=== PATIENT | female | born 1985 | race Caucasian/White ===

== ENCOUNTER 2017-03-02 07:05 | Inpatient (IN) | payer BC, OTHER ==
[2017-03-02] MEDS ORDERED: Ondansetron 4 MG/2 ML SDV IVPUSH PRN ×2 (07:13→10:06)
[2017-03-02] MEDS ORDERED: Nalbuphine 20 MG/1 ML Amp IVPUSH PRN (07:13)
[2017-03-02] MEDS ORDERED: Sodium Chloride 0.9% 10 ML Syringe FLUSH PRN (07:13)
[2017-03-02] MEDS ORDERED: Oxytocin/Lactated Ringers 10 UNIT/1,000 ML BAG IV SCH ×2 (07:15)
[2017-03-02] MEDS: Lactated Ringers 1,000 ML IV SCH ×4 (07:57→15:51)
--- NOTE | 2017-03-02 09:40 | PCM.LDHP ---
L&D History of Present Illness - General Date of Service: 03/02/17 Admit Problem/Dx: Patient Status Order with Admit Dx/Problem 03/02/17 07:14 Patient Status [ADT] Routine Admission Diagnosis/Problem Admission Diagnosis/Problem Normal Source of Information: Patient History Limitations: Reports: No Limitations - History of Present Illness Introduction:: Patient is a 31 y/o at 39 2/7 wks who presents for IOL due to history of prior affected by demise around 23-24 wks. No etiology found for that demise. Patient was noted to be a carrier for Factor V Leiden and elected to have prophylactic Lovenox this . She has otherwise completed serial growth US's and NST's which have been appropriate this . She is doing well today. No major concerns or complaints. She is getting good FM. - Related Data Allergies/Adverse Reactions: Allergies Allergy/AdvReac Type Severity Reaction Status Date / Time amoxicillin Allergy Rash Verified 04/01/15 08:38 Home Medications: Home Meds Loratadine [Claritin] 10 mg PO DAILY 03/31/15 [History] PNV95/Ferrous Fumarate/FA [ Tablet] 1 tab PO DAILY 05/02/16 [History] Past Medical History HEENT History: Reports: Impaired Vision Other HEENT History: wears glasses LITERACY COORDINATOR History: Reports: : 2 Para: 0 LMP (Approximate): Hematologic History: Reports: Other (See Below) (Factor V Leiden mutation - heterozygote) - Past Surgical History HEENT Surgical History: Reports: Myringotomy w Tube(s), Oral Surgery Female Surgical History: Reports: Salpingo-Oophorectomy Social & Family History - Family History Family Medical History: Noncontributory - Tobacco Use Smoking Status *Q: Never Smoker Second Hand Smoke Exposure: No - Caffeine Use Caffeine Use: Reports: Soda - Alcohol Use Alcohol Use History: No Days Per Week of Alcohol Use: 0 - Recreational Drug Use Recreational Drug Use: No Drug Use in Last 12 Months: No - Living Situation & Occupation Living situation: Reports: , with Spouse Occupation: Employed H&P Review of Systems - Review of Systems: Review Of Systems: See Below General: Reports: No Symptoms Pulmonary: Reports: No Symptoms Cardiovascular: Reports: No Symptoms Gastrointestinal: Reports: No Symptoms Genitourinary: Reports: No Symptoms Musculoskeletal: Reports: No Symptoms Psychiatric: Reports: No Symptoms L&D Exam - Exam Exam: See Below - Vital Signs Vital Signs: Last Vital Signs Temp 36.9 C 03/02/17 07:56 Pulse 103 H 03/02/17 07:56 Resp 20 03/02/17 07:56 BP 122/81 03/02/17 07:56 Pulse Ox 98 03/02/17 07:56 Weight: 88.451 kg - OB Specific Contraction Intensity: Irritability Movement: Active Heart Tones: Present Heart Tones per Min: 135 Heart Rate (FHR) Variability: Moderate (6-25 bmp) Presentation: Vertex - Acharya Score Acharya Score Cervix Position: Posterior Acharya Score Consistency: Soft Acharya Score Effacement: 51-70% Acharya Score Dilation: 3-4 cm Acharya Score 's Station: -1 ,0 Acharya Score Total: 8 - Exam General: Alert, Oriented, Cooperative Lungs: Clear to Auscultation, Normal Respiratory Effort Cardiovascular: Regular Rate, Regular Rhythm GI/Abdominal Exam: Soft, Non-Tender Genitourinary: Normal external exam Extremities: Normal Inspection Skin: Warm, Dry, Intact - Patient Data Lab Results Last 24 hrs: Laboratory Results - last 24 hr 03/02/17 03/02/17 Range/Units 07:40 07:40 WBC 9.43 (3.98-10.04) K/mm3 RBC 3.43 L (3.98-5.22) M/mm3 Hgb 9.8 L (11.2-15.7) gm/L Hct 30.4 L (34.1-44.9) % MCV 88.6 (79.4-94.8) fl MCH 28.6 (25.6-32.2) pg MCHC 32.2 (32.2-35.5) g/dl RDW Std Deviation 49.9 H (36.4-46.3) fL Plt Count 152 L (182-369) K/mm3 MPV 11.8 (9.4-12.3) fl Blood Type A POSITIVE Gel Antibody Screen Negative Result Diagrams: 03/02/17 07:40 - Problem List (1) Prior with demise and current in third trimester SNOMED Code(s): 78010900, 74011960 ICD Code: O09.293 - SUPRVSN OF PREG W POOR REPRODCTV OR OBSTET HX, THIRD TRI Status: Acute Current Visit: Yes (2) Heterozygous factor V Leiden affecting in third trimester, antepartum SNOMED Code(s): 226772299 ICD Code: O99.113 - OTH DIS OF BLD/BLD-FORM ORG/IMMUN MECHNSM COMP PREG, 3RD TRI; D68.51 - ACTIVATED PROTEIN C RESISTANCE Status: Acute Current Visit: Yes (3) GBS (group B Streptococcus carrier), +RV culture, currently SNOMED Code(s): 50076517, 223320904 ICD Code: O99.820 - STREPTOCOCCUS B CARRIER STATE COMPLICATING Status: Acute Current Visit: Yes (4) Rubella non-immune status, antepartum SNOMED Code(s): 293688702 ICD Code: O99.89 - OTH DISEASES AND CONDITIONS COMPL PREG/CHLDBRTH; Z28.3 - UNDERIMMUNIZATION STATUS Status: Acute Current Visit: Yes Problem List Initiated/Reviewed/Updated: Yes Orders Last 24hrs: Active Orders 24 hr Category Date Time Status Patient Status [ADT] Routine ADT 03/02/17 07:14 Active Communication Order [RC] ASDIRECTED Care 03/02/17 07:13 Active Communication Order [RC] ASDIRECTED Care 03/02/17 07:13 Active Communication Order [RC] ASDIRECTED Care 03/02/17 07:13 Active Monitoring [RC] INTERMITTENT Care 03/02/17 07:13 Active Notify Provider [RC] ASDIRECTED Care 03/02/17 07:13 Active Notify Provider [RC] PRN Care 03/02/17 07:13 Active Peripheral IV Care [RC] . DIRECTED Care 03/02/17 07:15 Active Up ad Tammie [RC] ASDIRECTED Care 03/02/17 07:13 Active Vaginal Exam [RC] ASDIRECTED Care 03/02/17 07:13 Active Regular Diet [DIET] Diet 03/02/17 Breakfast Active Lactated Ringers [Ringers, Lactated] 1,000 ml Med 03/02/17 07:15 Active IV ASDIRECTED Nalbuphine [Nubain] Med 03/02/17 07:13 Active 10 mg IVPUSH Q2H PRN Ondansetron [Zofran] Med 03/02/17 07:13 Active 4 mg IVPUSH Q4H PRN Oxytocin/Lactated Ringers [Pitocin in LR 10 Units/1,000 Med 03/02/17 07:15 Active ML] 10 unit in 1,000 ml IV .CONTINUOUS Oxytocin/Lactated Ringers [Pitocin in LR 10 Units/1,000 Med 03/02/17 07:15 Active ML] 10 unit in 1,000 ml IV TITRATE Sodium Chloride 0.9% [Saline Flush] Med 03/02/17 07:13 Active 10 ml FLUSH ASDIRECTED PRN Vancomycin [Vancocin] 1 gm Med 03/02/17 07:30 Active Sodium Chloride 0.9% [Normal Saline] 250 ml IV Q12H Electronic Heart Tones Internal [WOMSER] Per Unit Oth 03/02/17 07:13 Ordered Routine Peripheral IV Insertion Adult [OM.PC] Routine Oth 03/02/17 07:13 Ordered Resuscitation Status Routine Resus Stat 03/02/17 07:13 Ordered Medication Orders Lactated Ringer's (Ringers, Lactated) 1,000 mls @ 40 mls/hr IV ASDIRECTED RAMONE Last Admin: 03/02/17 07:57 Dose: 40 mls/hr Oxytocin/Lactated Ringer's (Pitocin In Lr 10 Units/1,000 Ml) 10 unit in 1,000 mls @ 500 mls/hr IV .CONTINUOUS RAMONE Oxytocin/Lactated Ringer's (Pitocin In Lr 10 Units/1,000 Ml) 10 unit in 1,000 mls @ 12 mls/hr IV TITRATE RAMONE; 2 MUNITS/MIN PRN Reason: Protocol Last Titration: 03/02/17 09:32 Dose: 4 munits/min, 24 mls/hr Admin: 03/02/17 09:05 Dose: 2 munits/min, 12 mls/hr Vancomycin HCl 1 gm/ Sodium (Chloride) 250 mls @ 250 mls/hr IV Q12H RAMONE Last Admin: 03/02/17 07:57 Dose: 250 mls/hr Nalbuphine HCl (Nubain) 10 mg IVPUSH Q2H PRN PRN Reason: Pain (moderate 4-6) Ondansetron HCl (Zofran) 4 mg IVPUSH Q4H PRN PRN Reason: Nausea/Vomiting Sodium Chloride (Saline Flush) 10 ml FLUSH ASDIRECTED PRN PRN Reason: Keep Vein Open Assessment/Plan Comment:: 31 y/o at 39 2/7 wks presents for IOL due to history of 23-24 wk demise in prior * CBC and T&S * Pitocin for induction with AROM when able * Vancomycin for GBS positive status (PCN allergy and GBS resistant to clindamycin) * Has been on prophylactic Lovenox this , last dose yesterday at 0715. Will possibly restart post- depending upon circumstances of delivery * Pain management per patient preference * MMR post delivery Hayde Villegas MD
[2017-03-02] MEDS ORDERED: fentaNYL 100 MCG/2 ML SDV EPIDUR PRN (10:06)
[2017-03-02] MEDS ORDERED: ePHEDrine 50 MG/ML SDV IVPUSH PRN (10:06)
--- NOTE | 2017-03-02 10:12 | PCM.PREANE ---
Preanesthetic Assessment - Anesthesia/Transfusion/Family Hx Anesthesia History: Prior Anesthesia Without Reaction Family History of Anesthesia Reaction: No Transfusion History: No Prior Transfusion(s) Intubation History: Unknown - Review of Systems General: No Symptoms Pulmonary: No Symptoms Cardiovascular: No Symptoms Gastrointestinal: No Symptoms Neurological: No Symptoms - Physical Assessment NPO Status Date: 03/02/17 NPO Status Time: 09:00 Pulse: 103 O2 Sat by Pulse Oximetry: 98 Respiratory Rate: 20 Blood Pressure: 122/81 Temperature: 36.9 C Vital Signs: Last Vital Signs Temp 36.9 C 03/02/17 07:56 Pulse 103 H 03/02/17 07:56 Resp 20 03/02/17 07:56 BP 122/81 03/02/17 07:56 Pulse Ox 98 03/02/17 07:56 Height: 1.68 m Weight: 88.451 kg ASA Class: 2 Mental Status: Alert & Oriented x3 Airway Class: Mallampati = 3 Dentition: Reports: Normal Dentition, Caries Thyro-Mental Finger Breadths: 3 Mouth Opening Finger Breadths: 3 ROM/Head Extension: Full Lungs: Clear to Auscultation, Normal Respiratory Effort Cardiovascular: Regular Rate, Regular Rhythm, No Murmurs - Lab Values: Laboratory Last Values WBC 9.43 K/mm3 (3.98-10.04) 03/02/17 07:40 RBC 3.43 M/mm3 (3.98-5.22) L 03/02/17 07:40 Hgb 9.8 gm/L (11.2-15.7) L 03/02/17 07:40 Hct 30.4 % (34.1-44.9) L 03/02/17 07:40 MCV 88.6 fl (79.4-94.8) 03/02/17 07:40 MCH 28.6 pg (25.6-32.2) 03/02/17 07:40 MCHC 32.2 g/dl (32.2-35.5) 03/02/17 07:40 RDW Std Deviation 49.9 fL (36.4-46.3) H 03/02/17 07:40 Plt Count 152 K/mm3 (182-369) L 03/02/17 07:40 MPV 11.8 fl (9.4-12.3) 03/02/17 07:40 Blood Type A POSITIVE 03/02/17 07:40 Gel Antibody Screen Negative 03/02/17 07:40 Above labs reviewed and noted. - Allergies Allergies/Adverse Reactions: Allergies Allergy/AdvReac Type Severity Reaction Status Date / Time amoxicillin Allergy Rash Verified 04/01/15 08:38 - Anesthesia Plan Pre-Op Medication Ordered: None - Acknowledgements Anesthesia Type Planned: Epidural Pt an Appropriate Candidate for the Planned Anesthesia: Yes Alternatives and Risks of Anesthesia Discussed w Pt/Guardian: Yes Pt/Guardian Understands and Agrees with Anesthesia Plan: Yes PreAnesthesia Questionnaire HEENT History: Reports: Impaired Vision Other HEENT History: wears glasses Cardiovascular History: Reports: Other (See Below) Other Cardiovascular History: factor 5 Genitourinary History: Reports: Other (See Below) 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 OB/BYN History: unilateral salpingo-oophorectomy Hematologic History: Reports: Other (See Below) (Factor V Leiden mutation - heterozygote) - Past Surgical History HEENT Surgical History: Reports: Myringotomy w Tube(s), Oral Surgery Female Surgical History: Reports: Salpingo-Oophorectomy - SUBSTANCE USE Smoking Status *Q: Never Smoker Second Hand Smoke Exposure: No Days Per Week of Alcohol Use: 0 Recreational Drug Use History: No - HOME MEDS Home Medications: Home Meds Loratadine [Claritin] 10 mg PO DAILY 03/31/15 [History] PNV95/Ferrous Fumarate/FA [ Tablet] 1 tab PO DAILY 05/02/16 [History] - CURRENT (IN HOUSE) MEDS Current Meds: Current Medications Lactated Ringer's (Ringers, Lactated) 1,000 mls @ 40 mls/hr IV ASDIRECTED RAMONE Last Admin: 03/02/17 07:57 Dose: 40 mls/hr Oxytocin/Lactated Ringer's (Pitocin In Lr 10 Units/1,000 Ml) 10 unit in 1,000 mls @ 500 mls/hr IV .CONTINUOUS RAMONE Oxytocin/Lactated Ringer's (Pitocin In Lr 10 Units/1,000 Ml) 10 unit in 1,000 mls @ 12 mls/hr IV TITRATE RAMONE; 2 MUNITS/MIN PRN Reason: Protocol Last Titration: 03/02/17 09:32 Dose: 4 munits/min, 24 mls/hr Vancomycin HCl 1 gm/ Sodium (Chloride) 250 mls @ 250 mls/hr IV Q12H RAMONE Last Admin: 03/02/17 07:57 Dose: 250 mls/hr Nalbuphine HCl (Nubain) 10 mg IVPUSH Q2H PRN PRN Reason: Pain (moderate 4-6) Ondansetron HCl (Zofran) 4 mg IVPUSH Q4H PRN PRN Reason: Nausea/Vomiting Sodium Chloride (Saline Flush) 10 ml FLUSH ASDIRECTED PRN PRN Reason: Keep Vein Open
[2017-03-02] MEDS ORDERED: Bupivacaine/fentaNYL/NS 100 ML Bag EPIDUR SCH (10:15)
--- NOTE | 2017-03-02 15:03 | PCM.PNLD ---
Labor Progress Note - VS & Meds Vital Signs: Last Vital Signs Temp 36.9 C 03/02/17 10:13 Pulse 103 H 03/02/17 10:13 Resp 20 03/02/17 10:13 BP 122/81 03/02/17 10:13 Pulse Ox 98 03/02/17 10:13 Active Medications: Current Medications Ephedrine Sulfate (Ephedrine Sulfate) 5 mg IVPUSH ASDIRECTED PRN PRN Reason: Hypotension Fentanyl (Sublimaze) 100 mcg EPIDUR Q3H PRN PRN Reason: Pain Last Admin: 03/02/17 14:19 Dose: 100 mcg Fentanyl/Bupivacaine HCl (Fentanyl/Bupivacaine/Ns 2 Mcg-0.125% 100 Ml) 100 ml EPIDUR ASDIRECTED RAMONE Last Admin: 03/02/17 14:19 Dose: 100 ml Lactated Ringer's (Ringers, Lactated) 1,000 mls @ 40 mls/hr IV ASDIRECTED RAMONE Last Admin: 03/02/17 14:00 Dose: 40 mls/hr Oxytocin/Lactated Ringer's (Pitocin In Lr 10 Units/1,000 Ml) 10 unit in 1,000 mls @ 500 mls/hr IV .CONTINUOUS RAMONE Oxytocin/Lactated Ringer's (Pitocin In Lr 10 Units/1,000 Ml) 10 unit in 1,000 mls @ 12 mls/hr IV TITRATE RAMONE; 2 MUNITS/MIN PRN Reason: Protocol Last Titration: 03/02/17 14:57 Dose: 11 munits/min, 66 mls/hr Vancomycin HCl 1 gm/ Sodium (Chloride) 250 mls @ 250 mls/hr IV Q12H RAMONE Last Admin: 03/02/17 07:57 Dose: 250 mls/hr Nalbuphine HCl (Nubain) 10 mg IVPUSH Q2H PRN PRN Reason: Pain (moderate 4-6) Ondansetron HCl (Zofran) 4 mg IVPUSH Q4H PRN PRN Reason: Nausea/Vomiting Ondansetron HCl (Zofran) 4 mg IVPUSH ONETIME PRN PRN Reason: Nausea/Vomiting Sodium Chloride (Saline Flush) 10 ml FLUSH ASDIRECTED PRN PRN Reason: Keep Vein Open - Uterine Contractions Uterine Monitoring Mode: External [place] Contraction Intensity: Mild Uterine Resting Tone: Soft - Monitoring Monitor Mode: External Ultrasound Heart Rate (FHR) Baseline: 135 Heart Rate (FHR) Variability: Moderate (6-25 bmp) Accelerations: Present, 15x15 Decelerations: None Strip Review: Category I - Vaginal Exam Dilation (cm): 3 Effacement (Percent): 75 Station: -1 Cervical Position: Posterior - Labor Progress (Free Text) Labor Progress: Patient doing well. On pitocin of 14. Contractions just starting to get uncomfortable. AROM performed with release of clear fluid. Continue present management
[2017-03-02] MEDS ORDERED: Lidocaine 1% 50 ML MDV ONE (15:57)
--- NOTE | 2017-03-02 18:40 | PCM.DEL ---
L & D Note - General Info Date of Service: 03/02/17 - Delivery Note Labor: Induced by ARM, Induced by Oxytocin Delivery Outcome: Livebirth Infant Delivery Method: Spontaneous Vaginal Delivery-Single Infant Delivery Mode: Spontaneous Presentation: Left Occiput Anterior (ZIGGY) Nuchal Cord: Present Anesthesia Type: Epidural Amniotic Fluid Description: Clear Episiotomy Type: None Laceration: 2nd Degree, Periurethral Suture type: Vicryl Suture size: 2-0 Placenta: Intact, Spontaneous Cord: 3 Vessels Estimated Blood Loss: 300 Resuscitation Needed: Yes [place]: Bulb Syringe, Stimulated, Warmed, [place] Used Score 1 min: 8 Score 5 min: 9 Delivery Comments (Free Text/Narrative):: Patient found to be complete and began pushing. With maternal pushing effort head delivered from an ZIGGY presentation. Nuchal cord present, but not reduced. With gentle downward traction the shoulders and body delivered. placed on maternal abdomen. Cord clamped and cut. Cord blood obtained. Placenta allowed time to separate and then expelled. Inspection of the perineum showed a 2nd degree laceration which was repaired with a 2-0 vicryl in the typical fashion. - Patient Data Vitals - Most Recent: Last Vital Signs Temp 36.9 C 03/02/17 10:13 Pulse 103 H 03/02/17 10:13 Resp 20 03/02/17 10:13 BP 122/81 03/02/17 10:13 Pulse Ox 98 03/02/17 10:13 Weight - Most Recent: 88.451 kg I&O - Last 24 Hours: Intake & Output 03/02/17 03/02/17 03/02/17 06:59 14:59 22:59 Intake Total 360 Balance 360 Lab Results Last 24 Hours: Laboratory Results - last 24 hr 03/02/17 03/02/17 Range/Units 07:40 07:40 WBC 9.43 (3.98-10.04) K/mm3 RBC 3.43 L (3.98-5.22) M/mm3 Hgb 9.8 L (11.2-15.7) gm/L Hct 30.4 L (34.1-44.9) % MCV 88.6 (79.4-94.8) fl MCH 28.6 (25.6-32.2) pg MCHC 32.2 (32.2-35.5) g/dl RDW Std Deviation 49.9 H (36.4-46.3) fL Plt Count 152 L (182-369) K/mm3 MPV 11.8 (9.4-12.3) fl Blood Type A POSITIVE Gel Antibody Screen Negative Med Orders - Current: Current Medications Ephedrine Sulfate (Ephedrine Sulfate) 5 mg IVPUSH ASDIRECTED PRN PRN Reason: Hypotension Fentanyl (Sublimaze) 100 mcg EPIDUR Q3H PRN PRN Reason: Pain Last Admin: 03/02/17 14:19 Dose: 100 mcg Fentanyl/Bupivacaine HCl (Fentanyl/Bupivacaine/Ns 2 Mcg-0.125% 100 Ml) 100 ml EPIDUR ASDIRECTED RAMONE Last Admin: 03/02/17 14:19 Dose: 100 ml Lactated Ringer's (Ringers, Lactated) 1,000 mls @ 40 mls/hr IV ASDIRECTED RAMONE Last Admin: 03/02/17 15:51 Dose: 40 mls/hr Oxytocin/Lactated Ringer's (Pitocin In Lr 10 Units/1,000 Ml) 10 unit in 1,000 mls @ 500 mls/hr IV .CONTINUOUS RAMONE Oxytocin/Lactated Ringer's (Pitocin In Lr 10 Units/1,000 Ml) 10 unit in 1,000 mls @ 12 mls/hr IV TITRATE RAMONE; 2 MUNITS/MIN PRN Reason: Protocol Last Titration: 03/02/17 15:21 Dose: 12 munits/min, 72 mls/hr Vancomycin HCl 1 gm/ Sodium (Chloride) 250 mls @ 250 mls/hr IV Q12H RAMONE Last Admin: 03/02/17 07:57 Dose: 250 mls/hr Nalbuphine HCl (Nubain) 10 mg IVPUSH Q2H PRN PRN Reason: Pain (moderate 4-6) Ondansetron HCl (Zofran) 4 mg IVPUSH Q4H PRN PRN Reason: Nausea/Vomiting Ondansetron HCl (Zofran) 4 mg IVPUSH ONETIME PRN PRN Reason: Nausea/Vomiting Sodium Chloride (Saline Flush) 10 ml FLUSH ASDIRECTED PRN PRN Reason: Keep Vein Open Discontinued Medications Lidocaine HCl (Xylocaine 1%) Confirm Administered Dose 50 ml .ROUTE .STK-MED ONE Stop: 03/02/17 15:58 - Problem List & Annotations (1) Prior with demise and current in third trimester SNOMED Code(s): 14843307, 98248106 Code(s): O09.293 - SUPRVSN OF PREG W POOR REPRODCTV OR OBSTET HX, THIRD TRI Status: Acute Current Visit: Yes (2) Heterozygous factor V Leiden affecting in third trimester, antepartum SNOMED Code(s): 593108152 Code(s): O99.113 - OTH DIS OF BLD/BLD-FORM ORG/IMMUN MECHNSM COMP PREG, 3RD TRI; D68.51 - ACTIVATED PROTEIN C RESISTANCE Status: Acute Current Visit: Yes (3) GBS (group B Streptococcus carrier), +RV culture, currently SNOMED Code(s): 96573528, 480542633 Code(s): O99.820 - STREPTOCOCCUS B CARRIER STATE COMPLICATING Status: Acute Current Visit: Yes (4) Rubella non-immune status, antepartum SNOMED Code(s): 826518944 Code(s): O99.89 - OTH DISEASES AND CONDITIONS COMPL PREG/CHLDBRTH; Z28.3 - UNDERIMMUNIZATION STATUS Status: Acute Current Visit: Yes (5) Vaginal delivery SNOMED Code(s): 326939737 Code(s): O80 - ENCOUNTER FOR FULL-TERM UNCOMPLICATED DELIVERY Status: Acute Current Visit: No - Problem List Review Problem List Initiated/Reviewed/Updated: Yes - My Orders Last 24 Hours: My Active Orders 03/02/17 07:13 Communication Order [RC] ASDIRECTED Communication Order [RC] ASDIRECTED Communication Order [RC] ASDIRECTED Monitoring [RC] INTERMITTENT Notify Provider [RC] ASDIRECTED Notify Provider [RC] PRN Up ad Tammie [RC] ASDIRECTED Vaginal Exam [RC] ASDIRECTED Nalbuphine [Nubain] 10 mg IVPUSH Q2H PRN Ondansetron [Zofran] 4 mg IVPUSH Q4H PRN Sodium Chloride 0.9% [Saline Flush] 10 ml FLUSH ASDIRECTED PRN Electronic Heart Tones Internal [WOMSER] Per Unit Routine Peripheral IV Insertion Adult [OM.PC] Routine Resuscitation Status Routine 03/02/17 07:14 Patient Status [ADT] Routine 03/02/17 07:15 Peripheral IV Care [RC] . DIRECTED Lactated Ringers [Ringers, Lactated] 1,000 ml IV ASDIRECTED Oxytocin/Lactated Ringers [Pitocin in LR 10 Units/1,000 ML] 10 unit in 1,000 ml IV .CONTINUOUS Oxytocin/Lactated Ringers [Pitocin in LR 10 Units/1,000 ML] 10 unit in 1,000 ml IV TITRATE 03/02/17 07:30 Vancomycin [Vancocin] 1 gm Sodium Chloride 0.9% [Normal Saline] 250 ml IV Q12H 03/02/17 18:36 Patient Status Manage Transfer [TRANSFER] Routine 03/02/17 Breakfast Regular Diet [DIET] - Assessment Assessment:: 31 y/o G2 now P1101 PPD#0 from at 39 2/7 wks - Plan Plan:: * Routine cares * Encourage breast feeding * Likely can hold Lovenox as delivery uncomplicated, but will discuss further tomorrow * Discharge home in 2 days * MMR prior to discharge Hayde Villegas MD
[2017-03-02] MEDS ORDERED: Docusate Sodium 100 MG Cap PO PRN (19:44)
[2017-03-02] MEDS ORDERED: Witch Hazel Medicated Pads 100/Jar TOP PRN (19:44)
[2017-03-02] MEDS ORDERED: Benzocaine/Menthol 20%-0.5% Spray 56 GM Canister TOP PRN (19:44)
[2017-03-02] MEDS ORDERED: Lanolin 100% Cream 7 GM Tube TOP PRN (19:44)
[2017-03-02] MEDS ORDERED: Acetaminophen 325 MG Tab PO PRN (19:44)
[2017-03-02] MEDS ORDERED: Lidocaine 1% 20 ML MDV INJECT ONE (19:55)
[2017-03-02] MEDS: Ibuprofen 600 MG Tab PO PRN (21:02)
[2017-03-02] MEDS ORDERED: Bupivacaine 0.25% 10 ML SDV ONE (22:22)
[2017-03-03] MEDS: Ibuprofen 600 MG Tab PO PRN ×2 (03:57→20:22)
--- NOTE | 2017-03-03 06:41 | PCM.PNPP ---
- General Info Date of Service: 03/03/17 Functional Status: Reports: Pain Controlled, Tolerating Diet, Ambulating, Urinating - Review of Systems General: Reports: No Symptoms Pulmonary: Reports: No Symptoms Cardiovascular: Reports: No Symptoms Gastrointestinal: Reports: No Symptoms Genitourinary: Reports: No Symptoms Musculoskeletal: Reports: No Symptoms Neurological: Reports: No Symptoms - Patient Data Vital Signs - Most Recent: Last Vital Signs Temp 36.6 C 03/03/17 03:57 Pulse 97 03/03/17 03:53 Resp 17 03/03/17 03:53 BP 110/73 03/03/17 03:53 Pulse Ox 98 03/03/17 03:53 Weight - Most Recent: 88.451 kg I&O - Last 24 Hours: Intake & Output 03/02/17 03/02/17 03/03/17 14:59 22:59 06:59 Intake Total 1360 Balance 1360 Lab Results - Last 24 Hours: Laboratory Results - last 24 hr 03/02/17 03/02/17 Range/Units 07:40 07:40 WBC 9.43 (3.98-10.04) K/mm3 RBC 3.43 L (3.98-5.22) M/mm3 Hgb 9.8 L (11.2-15.7) gm/L Hct 30.4 L (34.1-44.9) % MCV 88.6 (79.4-94.8) fl MCH 28.6 (25.6-32.2) pg MCHC 32.2 (32.2-35.5) g/dl RDW Std Deviation 49.9 H (36.4-46.3) fL Plt Count 152 L (182-369) K/mm3 MPV 11.8 (9.4-12.3) fl Blood Type A POSITIVE Gel Antibody Screen Negative Med Orders - Current: Current Medications Acetaminophen (Tylenol) 650 mg PO Q4H PRN PRN Reason: mild pain or fever Benzocaine/Menthol (Dermoplast Pain Relief [place]) 0 gm TOP ASDIRECTED PRN PRN Reason: Perineal Comfort Measure Last Admin: 03/02/17 19:59 Dose: 1 applic Docusate Sodium (Colace) 100 mg PO BID PRN PRN Reason: Constipation Emollient Ointment (Lansinoh Hpa) 0 gm TOP ASDIRECTED PRN PRN Reason: Sore Nipples Ibuprofen (Motrin) 600 mg PO Q6H PRN PRN Reason: Mild pain or fever Last Admin: 03/03/17 03:57 Dose: 600 mg Witch Juju (Tucks) 1 pad TOP ASDIRECTED PRN PRN Reason: Hemorrhoid pain Last Admin: 03/02/17 19:59 Dose: 1 applic Discontinued Medications Ephedrine Sulfate (Ephedrine Sulfate) 5 mg IVPUSH ASDIRECTED PRN PRN Reason: Hypotension Fentanyl (Sublimaze) 100 mcg EPIDUR Q3H PRN PRN Reason: Pain Last Admin: 03/02/17 14:19 Dose: 100 mcg Fentanyl/Bupivacaine HCl (Fentanyl/Bupivacaine/Ns 2 Mcg-0.125% 100 Ml) 100 ml EPIDUR ASDIRECTED RAMONE Last Admin: 03/02/17 14:19 Dose: 100 ml Lactated Ringer's (Ringers, Lactated) 1,000 mls @ 40 mls/hr IV ASDIRECTED RAMONE Last Admin: 03/02/17 15:51 Dose: 40 mls/hr Oxytocin/Lactated Ringer's (Pitocin In Lr 10 Units/1,000 Ml) 10 unit in 1,000 mls @ 500 mls/hr IV .CONTINUOUS RAMONE Oxytocin/Lactated Ringer's (Pitocin In Lr 10 Units/1,000 Ml) 10 unit in 1,000 mls @ 12 mls/hr IV TITRATE RAMONE; 2 MUNITS/MIN PRN Reason: Protocol Last Titration: 03/02/17 18:15 Dose: 500 mls/hr Vancomycin HCl 1 gm/ Sodium (Chloride) 250 mls @ 250 mls/hr IV Q12H RAMONE Last Admin: 03/02/17 22:19 Dose: Not Given Lidocaine HCl (Xylocaine 1%) Confirm Administered Dose 50 ml .ROUTE .STK-MED ONE Stop: 03/02/17 15:58 Last Admin: 03/02/17 18:25 Dose: 50 ml Lidocaine HCl (Xylocaine 1%) 50 ml INJECT ONETIME ONE Stop: 03/02/17 19:56 Last Admin: 03/02/17 22:18 Dose: Not Given Nalbuphine HCl (Nubain) 10 mg IVPUSH Q2H PRN PRN Reason: Pain (moderate 4-6) Ondansetron HCl (Zofran) 4 mg IVPUSH Q4H PRN PRN Reason: Nausea/Vomiting Ondansetron HCl (Zofran) 4 mg IVPUSH ONETIME PRN PRN Reason: Nausea/Vomiting Sodium Chloride (Saline Flush) 10 ml FLUSH ASDIRECTED PRN PRN Reason: Keep Vein Open - Interaction Infant Disposition, : [place] in Room with Family Interaction: Holding Infant Feeding: Bottle Fed , Other (see below) (pumping) Support Person: - Recovery Exam Fundal Tone: Firm Fundal Level: At Umbilicus Lochia Amount: Small, Moderate Lochia Color: Rubra/Red Bladder Status: Voiding - Exam General: Alert, Oriented, Cooperative GI/Abdominal Exam: Soft, Non-Tender Extremities: Normal Inspection Skin: Warm, Dry, Intact - Problem List & Annotations (1) Prior with demise and current in third trimester SNOMED Code(s): 12653311, 81163824 Code(s): O09.293 - SUPRVSN OF PREG W POOR REPRODCTV OR OBSTET HX, THIRD TRI Status: Acute Current Visit: Yes (2) Heterozygous factor V Leiden affecting in third trimester, antepartum SNOMED Code(s): 924951133 Code(s): O99.113 - OTH DIS OF BLD/BLD-FORM ORG/IMMUN MECHNSM COMP PREG, 3RD TRI; D68.51 - ACTIVATED PROTEIN C RESISTANCE Status: Acute Current Visit: Yes (3) GBS (group B Streptococcus carrier), +RV culture, currently SNOMED Code(s): 57075722, 467173397 Code(s): O99.820 - STREPTOCOCCUS B CARRIER STATE COMPLICATING Status: Acute Current Visit: Yes (4) Rubella non-immune status, antepartum SNOMED Code(s): 045845853 Code(s): O99.89 - OTH DISEASES AND CONDITIONS COMPL PREG/CHLDBRTH; Z28.3 - UNDERIMMUNIZATION STATUS Status: Acute Current Visit: Yes (5) Vaginal delivery SNOMED Code(s): 757541816 Code(s): O80 - ENCOUNTER FOR FULL-TERM UNCOMPLICATED DELIVERY Status: Acute Current Visit: No - Problem List Review Problem List Initiated/Reviewed/Updated: Yes - My Orders Last 24 Hours: My Active Orders 03/02/17 07:13 Monitoring [RC] INTERMITTENT Vaginal Exam [RC] ASDIRECTED Resuscitation Status Routine 03/02/17 19:44 Activity as Tolerated [RC] PER UNIT ROUTINE Vital Signs [RC] 12,20,04 Acetaminophen [Tylenol] 650 mg PO Q4H PRN Benzocaine/Menthol [Dermoplast Pain Relief [place]] See Dose Instructions TOP ASDIRECTED PRN Docusate Sodium [Colace] 100 mg PO BID PRN Ibuprofen [Motrin] 600 mg PO Q6H PRN Lanolin [Lansinoh HPA] See Dose Instructions TOP ASDIRECTED PRN Witch Juju [Tucks] 1 pad TOP ASDIRECTED PRN Assess Lochia [WOMSER] Per Unit Routine Assess Uterine Involution [WOMSER] Per Unit Routine Breast Pump [WOMSER] Per Unit Routine Heat Therapy [OM.PC] PRN Ice Therapy [OM.PC] Per Unit Routine Perineal Care [OM.PC] Per Unit Routine Peripheral IV Discontinue [OM.PC] Routine Sitz Bath [OM.PC] Per Unit Routine 03/02/17 Dinner Regular Diet [DIET] 03/03/17 19:44 Heat Therapy [OM.PC] PRN - Assessment Assessment:: 31 y/o G2 now P1101 PPD#1 from at 39 2/7 wks - Plan Plan:: * Routine cares * Encourage breast feeding * Reviewed that being she is a carrier only for Factor V she does not require anti-coagulation, however, the time frame is slightly higher risk. Overall given that she is young, mobile, and without complicating factors of delivery prefers to defer anti-coagulation * Discharge home tomorrow * MMR prior to discharge Hayde Villegas MD
[2017-03-04 05:01] VITALS: BP 119/72
--- NOTE | 2017-03-04 07:29 | PCM.PNPP ---
- General Info Date of Service: 03/04/17 Functional Status: Reports: Pain Controlled, Tolerating Diet, Ambulating, Urinating - Review of Systems General: Reports: No Symptoms Pulmonary: Reports: No Symptoms Cardiovascular: Reports: No Symptoms Gastrointestinal: Reports: No Symptoms Genitourinary: Reports: No Symptoms Musculoskeletal: Reports: No Symptoms - Patient Data Vital Signs - Most Recent: Last Vital Signs Temp 36.9 C 03/04/17 04:57 Pulse 93 03/04/17 04:57 Resp 16 03/04/17 04:57 BP 119/72 03/04/17 04:57 Pulse Ox 97 03/04/17 04:57 Weight - Most Recent: 88.451 kg I&O - Last 24 Hours: Intake & Output 03/03/17 03/04/17 03/04/17 22:59 06:59 14:59 Intake Total 240 Balance 240 Med Orders - Current: Current Medications Acetaminophen (Tylenol) 650 mg PO Q4H PRN PRN Reason: mild pain or fever Benzocaine/Menthol (Dermoplast Pain Relief [place]) 0 gm TOP ASDIRECTED PRN PRN Reason: Perineal Comfort Measure Last Admin: 03/02/17 19:59 Dose: 1 applic Docusate Sodium (Colace) 100 mg PO BID PRN PRN Reason: Constipation Emollient Ointment (Lansinoh Hpa) 0 gm TOP ASDIRECTED PRN PRN Reason: Sore Nipples Ibuprofen (Motrin) 600 mg PO Q6H PRN PRN Reason: Mild pain or fever Last Admin: 03/03/17 20:22 Dose: 600 mg Witch Juju (Tucks) 1 pad TOP ASDIRECTED PRN PRN Reason: Hemorrhoid pain Last Admin: 03/02/17 19:59 Dose: 1 applic Discontinued Medications Ephedrine Sulfate (Ephedrine Sulfate) 5 mg IVPUSH ASDIRECTED PRN PRN Reason: Hypotension Fentanyl (Sublimaze) 100 mcg EPIDUR Q3H PRN PRN Reason: Pain Last Admin: 03/02/17 14:19 Dose: 100 mcg Fentanyl/Bupivacaine HCl (Fentanyl/Bupivacaine/Ns 2 Mcg-0.125% 100 Ml) 100 ml EPIDUR ASDIRECTED RAMONE Last Admin: 03/02/17 14:19 Dose: 100 ml Lactated Ringer's (Ringers, Lactated) 1,000 mls @ 40 mls/hr IV ASDIRECTED RAMONE Last Admin: 03/02/17 15:51 Dose: 40 mls/hr Oxytocin/Lactated Ringer's (Pitocin In Lr 10 Units/1,000 Ml) 10 unit in 1,000 mls @ 500 mls/hr IV .CONTINUOUS RAMONE Oxytocin/Lactated Ringer's (Pitocin In Lr 10 Units/1,000 Ml) 10 unit in 1,000 mls @ 12 mls/hr IV TITRATE RAMONE; 2 MUNITS/MIN PRN Reason: Protocol Last Titration: 03/02/17 18:15 Dose: 500 mls/hr Vancomycin HCl 1 gm/ Sodium (Chloride) 250 mls @ 250 mls/hr IV Q12H RAMONE Last Admin: 03/02/17 22:19 Dose: Not Given Lidocaine HCl (Xylocaine 1%) Confirm Administered Dose 50 ml .ROUTE .STK-MED ONE Stop: 03/02/17 15:58 Last Admin: 03/02/17 18:25 Dose: 50 ml Lidocaine HCl (Xylocaine 1%) 50 ml INJECT ONETIME ONE Stop: 03/02/17 19:56 Last Admin: 03/02/17 22:18 Dose: Not Given Nalbuphine HCl (Nubain) 10 mg IVPUSH Q2H PRN PRN Reason: Pain (moderate 4-6) Ondansetron HCl (Zofran) 4 mg IVPUSH Q4H PRN PRN Reason: Nausea/Vomiting Ondansetron HCl (Zofran) 4 mg IVPUSH ONETIME PRN PRN Reason: Nausea/Vomiting Sodium Chloride (Saline Flush) 10 ml FLUSH ASDIRECTED PRN PRN Reason: Keep Vein Open - Infant Interaction Disposition, : in Room with Family Interaction: Holding Infant Feeding: Bottle Fed , Other (see below) (pumping, but infrequently ) Support Person: - Recovery Exam Fundal Tone: Firm Fundal Level: At Umbilicus Fundal Placement: Midline Lochia Amount: Small, Moderate Lochia Color: Rubra/Red Perineum Description: Other (see below) Other Perinuem Description: 2nd degree with repair Episiotomy/Laceration: Approximated Bladder Status: Voiding - Exam General: Alert, Oriented, Cooperative GI/Abdominal Exam: Soft, Non-Tender Extremities: Normal Inspection Skin: Warm, Dry, Intact - Problem List & Annotations (1) Prior with demise and current in third trimester SNOMED Code(s): 49776189, 85256501 Code(s): O09.293 - SUPRVSN OF PREG W POOR REPRODCTV OR OBSTET HX, THIRD TRI Status: Acute Current Visit: Yes (2) Heterozygous factor V Leiden affecting in third trimester, antepartum SNOMED Code(s): 847419091 Code(s): O99.113 - OTH DIS OF BLD/BLD-FORM ORG/IMMUN MECHNSM COMP PREG, 3RD TRI; D68.51 - ACTIVATED PROTEIN C RESISTANCE Status: Acute Current Visit: Yes (3) GBS (group B Streptococcus carrier), +RV culture, currently SNOMED Code(s): 60502313, 688163953 Code(s): O99.820 - STREPTOCOCCUS B CARRIER STATE COMPLICATING Status: Acute Current Visit: Yes (4) Rubella non-immune status, antepartum SNOMED Code(s): 240874683 Code(s): O99.89 - OTH DISEASES AND CONDITIONS COMPL PREG/CHLDBRTH; Z28.3 - UNDERIMMUNIZATION STATUS Status: Acute Current Visit: Yes (5) Vaginal delivery SNOMED Code(s): 023189945 Code(s): O80 - ENCOUNTER FOR FULL-TERM UNCOMPLICATED DELIVERY Status: Acute Current Visit: No - Problem List Review Problem List Initiated/Reviewed/Updated: Yes - My Orders Last 24 Hours: My Active Orders 03/03/17 19:44 Heat Therapy [OM.PC] PRN - Assessment Assessment:: 31 y/o G2 now P1101 PPD#2 from at 39 2/7 wks - Plan Plan:: * Routine cares * Encourage breast feeding * Carrier Factor V - previously reviewed risks/benefits of anti-coagulation. At this time prefers to defer anti-coagulation * Discharge home today * MMR prior to discharge Hayde Villegas MD
--- NOTE | 2017-03-04 07:36 | PCM.DCSUM1 ---
Discharge Summary - Discharge Data Discharge Date: 03/04/17 Discharge Disposition: Home, Self-Care 01 Condition: Good - Discharge Diagnosis/Problem(s) (1) Prior with demise and current in third trimester SNOMED Code(s): 95132117, 88400867 ICD Code: O09.293 - SUPRVSN OF PREG W POOR REPRODCTV OR OBSTET HX, THIRD TRI Status: Acute Current Visit: Yes (2) Heterozygous factor V Leiden affecting in third trimester, antepartum SNOMED Code(s): 952367454 ICD Code: O99.113 - OTH DIS OF BLD/BLD-FORM ORG/IMMUN MECHNSM COMP PREG, 3RD TRI; D68.51 - ACTIVATED PROTEIN C RESISTANCE Status: Acute Current Visit: Yes (3) GBS (group B Streptococcus carrier), +RV culture, currently SNOMED Code(s): 96309346, 438201622 ICD Code: O99.820 - STREPTOCOCCUS B CARRIER STATE COMPLICATING Status: Acute Current Visit: Yes (4) Rubella non-immune status, antepartum SNOMED Code(s): 903614370 ICD Code: O99.89 - OTH DISEASES AND CONDITIONS COMPL PREG/CHLDBRTH; Z28.3 - UNDERIMMUNIZATION STATUS Status: Acute Current Visit: Yes (5) Vaginal delivery SNOMED Code(s): 040901413 ICD Code: O80 - ENCOUNTER FOR FULL-TERM UNCOMPLICATED DELIVERY Status: Acute Current Visit: No - Patient Summary/Data Complications: None Consults: None Recommended Follow-up Testing/Procedures: Follow up in 5-6 weeks for check Hospital Course: 31 y/o at 39 2/7 wks who presents for IOL due to history of prior with demise. That occurred at 23-24 wks. She has been doing well this . No complications. Was brought in for induction which was started with pitocin and then AROM. She progressed well to complete dilation and underwent an uncomplicated . See delivery note. She is a known carrier for Factor V Leiden. Has no personal history of clot. She was on prophylactic anti-coagulation during her , but as delivery was uncomplicated she deferred anti-coagulation. She did well and was discharged home on PPD#2 - Patient Instructions Diet: Regular Diet as Tolerated Activity: As Tolerated Activity, Other: Pelvic Rest for 6 weeks Driving: May Drive Today Showering/Bathing: May Shower Showering/Bathing, Other: May bathe Notify Provider of: Fever, Increased Pain, Swelling and Redness, Drainage, Nausea and/or Vomiting - Discharge Plan Home Medications: Home Meds Loratadine [Claritin] 10 mg PO DAILY 03/31/15 [History] PNV95/Ferrous Fumarate/FA [ Tablet] 1 tab PO DAILY 05/02/16 [History] Docusate Sodium [Colace] 100 mg PO BID PRN cap 03/04/17 [Rx] Ibuprofen [IJD: Ibuprofen] 600 mg PO Q6H PRN tablet 03/04/17 [Rx] Referrals: Hayde Villegas MD [Physician] - (5-6 weeks for check ) - Discharge Summary/Plan Comment DC Time >30 min.: No - Patient Data Vitals - Most Recent: Last Vital Signs Temp 36.9 C 03/04/17 04:57 Pulse 93 03/04/17 04:57 Resp 16 03/04/17 04:57 BP 119/72 03/04/17 04:57 Pulse Ox 97 03/04/17 04:57 Weight - Most Recent: 88.451 kg I&O - Last 24 hours: Intake & Output 03/03/17 03/04/17 03/04/17 22:59 06:59 14:59 Intake Total 240 Balance 240 Med Orders - Current: Current Medications Acetaminophen (Tylenol) 650 mg PO Q4H PRN PRN Reason: mild pain or fever Benzocaine/Menthol (Dermoplast Pain Relief [place]) 0 gm TOP ASDIRECTED PRN PRN Reason: Perineal Comfort Measure Last Admin: 03/02/17 19:59 Dose: 1 applic Docusate Sodium (Colace) 100 mg PO BID PRN PRN Reason: Constipation Emollient Ointment (Lansinoh Hpa) 0 gm TOP ASDIRECTED PRN PRN Reason: Sore Nipples Ibuprofen (Motrin) 600 mg PO Q6H PRN PRN Reason: Mild pain or fever Last Admin: 03/03/17 20:22 Dose: 600 mg Witch Juju (Tucks) 1 pad TOP ASDIRECTED PRN PRN Reason: Hemorrhoid pain Last Admin: 03/02/17 19:59 Dose: 1 applic Discontinued Medications Ephedrine Sulfate (Ephedrine Sulfate) 5 mg IVPUSH ASDIRECTED PRN PRN Reason: Hypotension Fentanyl (Sublimaze) 100 mcg EPIDUR Q3H PRN PRN Reason: Pain Last Admin: 03/02/17 14:19 Dose: 100 mcg Fentanyl/Bupivacaine HCl (Fentanyl/Bupivacaine/Ns 2 Mcg-0.125% 100 Ml) 100 ml EPIDUR ASDIRECTED RAMONE Last Admin: 03/02/17 14:19 Dose: 100 ml Lactated Ringer's (Ringers, Lactated) 1,000 mls @ 40 mls/hr IV ASDIRECTED RAMONE Last Admin: 03/02/17 15:51 Dose: 40 mls/hr Oxytocin/Lactated Ringer's (Pitocin In Lr 10 Units/1,000 Ml) 10 unit in 1,000 mls @ 500 mls/hr IV .CONTINUOUS RAMONE Oxytocin/Lactated Ringer's (Pitocin In Lr 10 Units/1,000 Ml) 10 unit in 1,000 mls @ 12 mls/hr IV TITRATE RAMONE; 2 MUNITS/MIN PRN Reason: Protocol Last Titration: 03/02/17 18:15 Dose: 500 mls/hr Vancomycin HCl 1 gm/ Sodium (Chloride) 250 mls @ 250 mls/hr IV Q12H RAMONE Last Admin: 03/02/17 22:19 Dose: Not Given Lidocaine HCl (Xylocaine 1%) Confirm Administered Dose 50 ml .ROUTE .STK-MED ONE Stop: 03/02/17 15:58 Last Admin: 03/02/17 18:25 Dose: 50 ml Lidocaine HCl (Xylocaine 1%) 50 ml INJECT ONETIME ONE Stop: 03/02/17 19:56 Last Admin: 03/02/17 22:18 Dose: Not Given Nalbuphine HCl (Nubain) 10 mg IVPUSH Q2H PRN PRN Reason: Pain (moderate 4-6) Ondansetron HCl (Zofran) 4 mg IVPUSH Q4H PRN PRN Reason: Nausea/Vomiting Ondansetron HCl (Zofran) 4 mg IVPUSH ONETIME PRN PRN Reason: Nausea/Vomiting Sodium Chloride (Saline Flush) 10 ml FLUSH ASDIRECTED PRN PRN Reason: Keep Vein Open *Q Meaningful Use (DIS) - VTE *Q VTE Criteria *Q: - Stroke *Q Stroke Criteria *Q: - AMI *Q AMI Criteria *Q:
== END 2017-03-04 10:15 | disposition home or self-care (01) | DRG 560 ==
LOC: JD.OBCHECK 07:05 → OBSVTOIN 07:06 → JD.OB 07:06
PROVIDERS: ADMIT Obstetrics & Gynecology; ATTEND Obstetrics & Gynecology
PROC: 10E0XZZ Delivery of Products of Conception, External Approach (ICD-10-PCS; principal; 2017-03-02)
PROC: 3E033VJ Introduction of Other Hormone into Peripheral Vein, Percutaneous Approach (ICD-10-PCS; 2017-03-02)
PROC: 10907ZC Drainage of Amniotic Fluid, Therapeutic from Products of Conception, Via Natural or Artificial Opening (ICD-10-PCS; 2017-03-02)
PROC: 0KQM0ZZ Repair Perineum Muscle, Open Approach (ICD-10-PCS; 2017-03-02)
PROC: 00HU33Z Insertion of Infusion Device into Spinal Canal, Percutaneous Approach (ICD-10-PCS; 2017-03-02)
PROC: 3E0R3CZ (ICD-10-PCS; 2017-03-02)
DX: O99.12 Other diseases of the blood and blood-forming organs and certain disorders involving the immune mechanism complicating childbirth (principal); D68.51 Activated protein C resistance; Z3A.39 39 weeks gestation of pregnancy; Z37.0 Single live birth; Z88.1 Allergy status to other antibiotic agents; O99.824 Streptococcus B carrier state complicating childbirth; O70.1 Second degree perineal laceration during delivery; O69.81X0 Labor and delivery complicated by cord around neck, without compression, not applicable or unspecified
CPT/HCPCS: 01967; 36415; 51701; 59300; 59409; 59414; 85027; 86850; 86900; 86901; A9270-GY; J2590; J3010; J3370; J7050; J7120

== ENCOUNTER 2019-12-20 13:24 | Inpatient (IN) | payer BC ==
[~2019-12-20 13:24] MED LIST: Bupivacaine 0.25% 10 ML SDV ONE
[2019-12-20] MEDS ORDERED: Sodium Chloride 0.9% 10 ML Syringe FLUSH PRN (13:48)
[2019-12-20] MEDS ORDERED: Nalbuphine 10 MG/ML Syringe IVPUSH PRN (13:48)
[2019-12-20] MEDS ORDERED: Ondansetron 4 MG/2 ML SDV IVPUSH PRN (13:48)
--- NOTE | 2019-12-20 13:53 | PCM.LDHP ---
L&D History of Present Illness - General Date of Service: 12/20/19 Admit Problem/Dx: Patient Status Order with Admit Dx/Problem 12/20/19 13:48 Patient Status [ADT] Routine Admission Diagnosis/Problem Admission Diagnosis/Problem Normal in third trimester Source of Information: Patient History Limitations: Reports: No Limitations - History of Present Illness Introduction:: patient is a 34 y/o at 39 0/7 wks presents for IOL for hx of IUFD. also complicated by history of Factor V leiden homozygous deficiency. Patient has been on prophylactic lovenox through . Doing well today. Notes good FM. No signs of labor - Related Data Allergies/Adverse Reactions: Allergies Allergy/AdvReac Type Severity Reaction Status Date / Time amoxicillin Allergy Rash Verified 04/01/15 08:38 Home Medications: Home Meds Loratadine [Claritin] 10 mg PO DAILY 03/31/15 [History] Pnv No.95/Ferrous Fum/Folic AC [ Tablet] 1 tab PO DAILY 05/02/16 [History] Docusate Sodium [Colace] 100 mg PO BID PRN cap 03/04/17 [Rx] Ibuprofen [IJD: Ibuprofen] 600 mg PO Q6H PRN tablet 03/04/17 [Rx] Enoxaparin [Lovenox] 40 mg SUBCUT DAILY 12/20/19 [History] Past Medical History HEENT History: Reports: Impaired Vision Other HEENT History: wears glasses [employer] ADMIN History: Reports: , Spontaneous : 4 Para: 2 (1 living child ) LMP (Approximate): Hematologic History: Reports: Anticoagulation Therapy, Other (See Below) (Factor V Leiden mutation - heterozygote) - Past Surgical History HEENT Surgical History: Reports: Myringotomy w Tube(s) Female Surgical History: Reports: D&C, Salpingo-Oophorectomy (Ovarian torsion) Social & Family History - Family History Family Medical History: Noncontributory - Tobacco Use Smoking Status *Q: Never Smoker - Caffeine Use Caffeine Use: Reports: Soda - Alcohol Use Alcohol Use History: No - Recreational Drug Use Recreational Drug Use: No - Living Situation & Occupation Living situation: Reports: , with Spouse Occupation: Employed H&P Review of Systems - Review of Systems: Review Of Systems: See Below General: Reports: No Symptoms Pulmonary: Reports: No Symptoms Cardiovascular: Reports: No Symptoms Gastrointestinal: Reports: No Symptoms Genitourinary: Reports: No Symptoms Musculoskeletal: Reports: No Symptoms Psychiatric: Reports: No Symptoms Neurological: Reports: No Symptoms L&D Exam - Exam Exam: See Below - Vital Signs Weight: 86.636 kg - OB Specific Contraction Intensity: Irritability Movement: Active Heart Tones: Present Heart Tones per Min: 130 Heart Rate (FHR) Variability: Moderate (6-25 bmp) Presentation: Vertex - Acharya Score Acharya Score Cervix Position: Midposition Acharya Score Consistency: Soft Acharya Score Effacement: 51-70% Acharya Score Dilation: 3-4 cm Acharya Score 's Station: -2 Acharya Score Total: 8 - Exam General: Alert, Oriented, Cooperative Lungs: Clear to Auscultation, Normal Respiratory Effort Cardiovascular: Regular Rate, Regular Rhythm GI/Abdominal Exam: Soft, Non-Tender Genitourinary: Normal external exam Extremities: Normal Inspection Skin: Warm, Dry, Intact - Patient Data Result Diagrams: 12/20/19 13:59 - Problem List (1) 39 weeks gestation of SNOMED Code(s): 57081206 ICD Code: Z3A.39 - 39 WEEKS GESTATION OF Status: Acute Current Visit: Yes (2) Heterozygous factor V Leiden affecting in third trimester, antepartum SNOMED Code(s): 044246797 ICD Code: O99.113 - OTH DIS OF BLD/BLD-FORM ORG/IMMUN MECHNSM COMP PREG, 3RD TRI; D68.51 - ACTIVATED PROTEIN C RESISTANCE Status: Acute Current Visit: No Problem List Initiated/Reviewed/Updated: Yes Orders Last 24hrs: Active Orders 24 hr Category Date Time Status Patient Status [ADT] Routine ADT 12/20/19 13:48 Ordered Activity as Tolerated [RC] PFP Care 12/20/19 13:48 Ordered Communication Order [RC] ASDIRECTED Care 12/20/19 13:48 Ordered Heart Tones [RC] ASDIRECTED Care 12/20/19 13:48 Ordered Non Stress Test [RC] PER UNIT ROUTINE Care 12/20/19 13:48 Ordered Notify Provider [RC] PFP Care 12/20/19 13:48 Ordered Notify Provider [RC] PRN Care 12/20/19 13:48 Ordered Peripheral IV Care [RC] . DIRECTED Care 12/20/19 13:48 Ordered Vital Signs [RC] PER UNIT ROUTINE Care 12/20/19 13:48 Ordered Regular Diet [DIET] Diet 12/20/19 Lunch Ordered CBC W/O DIFF,HEMOGRAM [HEME] Routine Lab 12/20/19 13:48 Ordered CORONAVIRUS COVID-19 PCR PHL Stat Lab 12/20/19 13:44 Ordered RAPID PLASMA REAGIN,RPR [CHEM] Routine Lab 12/20/19 13:48 Ordered TYPE AND SCREEN [BBK] Routine Lab 12/20/19 13:48 Ordered Lactated Ringers [Ringers, Lactated] 1,000 ml Med 12/20/19 14:00 Ordered IV ASDIRECTED Nalbuphine [Nubain] Med 12/20/19 13:48 Ordered 10 mg IVPUSH Q2H PRN Ondansetron [Zofran] Med 12/20/19 13:48 Ordered 4 mg IVPUSH Q4H PRN Oxytocin/Lactated Ringers [Pitocin in LR 10 Units/1,000 Med 12/20/19 14:00 Ordered ML] 10 unit in 1,000 ml IV .CONTINUOUS Sodium Chloride 0.9% [Saline Flush] Med 12/20/19 13:48 Ordered 10 ml FLUSH ASDIRECTED PRN Electronic Heart Tones Ext w TOCO [WOMSER] Oth 12/20/19 13:48 Ordered Routine Electronic Heart Tones Internal [WOMSER] Per Unit Oth 12/20/19 13:48 Ordered Routine Peripheral IV Insertion Adult [OM.PC] Routine Oth 12/20/19 13:48 Ordered Resuscitation Status Routine Resus Stat 12/20/19 13:48 Ordered Medication Orders Lactated Ringer's (Ringers, Lactated) 1,000 mls @ 100 mls/hr IV ASDIRECTED RAMONE Oxytocin/Lactated Ringer's (Pitocin In Lr 10 Units/1,000 Ml) 10 unit in 1,000 mls @ 500 mls/hr IV .CONTINUOUS RAMONE Nalbuphine HCl (Nubain) 10 mg IVPUSH Q2H PRN PRN Reason: Pain Ondansetron HCl (Zofran) 4 mg IVPUSH Q4H PRN PRN Reason: Nausea/Vomiting Sodium Chloride (Saline Flush) 10 ml FLUSH ASDIRECTED PRN PRN Reason: Keep Vein Open Assessment/Plan Comment:: * Labs to be done * Has held Lovenox since yesterday AM * Pitocin for IOL, AROM to be done as well * Pain management per patient preference * Anticipate
[2019-12-20] MEDS ORDERED: Oxytocin/Lactated Ringers 10 UNIT/1,000 ML BAG IV SCH ×2 (14:00→14:45)
[2019-12-20] MEDS: Lactated Ringers 1,000 ML IV SCH ×2 (14:15→17:25)
[2019-12-20] MEDS ORDERED: fentaNYL 100 MCG/2 ML SDV EPIDUR PRN (16:59)
[2019-12-20] MEDS ORDERED: diphenhydrAMINE 50 MG/ML SDV IVPUSH PRN (16:59)
[2019-12-20] MEDS ORDERED: Bupivacaine/fentaNYL/NS 100 ML Bag EPIDUR PRN (16:59)
[2019-12-20] MEDS ORDERED: ePHEDrine 50 MG/ML SDV IVPUSH PRN (16:59)
--- NOTE | 2019-12-20 17:50 | PCM.PREANE ---
Preanesthetic Assessment - Procedure Proposed Procedure: EPIDURAL - Anesthesia/Transfusion/Family Hx Anesthesia History: Prior Anesthesia Without Reaction Family History of Anesthesia Reaction: No Transfusion History: No Prior Transfusion(s) Intubation History: Unknown - Review of Systems General: Fatigue Pulmonary: No Symptoms Cardiovascular: No Symptoms Gastrointestinal: Abdominal Pain (LABOR) Neurological: No Symptoms Other: Reports: None - Physical Assessment Vital Signs: Last Vital Signs Temp 36.6 C 12/20/19 13:48 Pulse Resp 18 12/20/19 13:48 BP 130/81 12/20/19 13:48 Pulse Ox 98 12/20/19 13:48 Height: 1.68 m Weight: 86.636 kg ASA Class: 2 Mental Status: Alert & Oriented x3 Airway Class: Mallampati = 1 Dentition: Reports: Normal Dentition Thyro-Mental Finger Breadths: 3 Mouth Opening Finger Breadths: 3 ROM/Head Extension: Full Lungs: Clear to Auscultation, Normal Respiratory Effort Cardiovascular: Regular Rate, Regular Rhythm - Lab Values: Laboratory Last Values WBC 8.30 K/mm3 (3.98-10.04) 12/20/19 13:59 RBC 3.80 M/mm3 (3.98-5.22) L 12/20/19 13:59 Hgb 10.8 gm/dl (11.2-15.7) L 12/20/19 13:59 Hct 34.1 % (34.1-44.9) 12/20/19 13:59 MCV 89.7 fl (79.4-94.8) 12/20/19 13:59 MCH 28.4 pg (25.6-32.2) 12/20/19 13:59 MCHC 31.7 g/dl (32.2-35.5) L 12/20/19 13:59 RDW Std Deviation 52.7 fL (36.4-46.3) H 12/20/19 13:59 Plt Count 124 K/mm3 (182-369) L 12/20/19 13:59 MPV 11.5 fl (9.4-12.3) 12/20/19 13:59 COVID-19 (JAYA) Negative (NEGATIVE) 12/20/19 13:20 Blood Type A POSITIVE 12/20/19 13:59 Gel Antibody Screen Negative 12/20/19 13:59 - Allergies Allergies/Adverse Reactions: Allergies Allergy/AdvReac Type Severity Reaction Status Date / Time amoxicillin Allergy Rash Verified 04/01/15 08:38 - Anesthesia Plan Pre-Op Medication Ordered: None - Acknowledgements Anesthesia Type Planned: Epidural Pt an Appropriate Candidate for the Planned Anesthesia: Yes Alternatives and Risks of Anesthesia Discussed w Pt/Guardian: Yes Pt/Guardian Understands and Agrees with Anesthesia Plan: Yes PreAnesthesia Questionnaire - Past Health History Medical/Surgical History: Denies Medical/Surgical History HEENT History: Reports: Impaired Vision Other HEENT History: wears glasses Cardiovascular History: Reports: Other (See Below) Other Cardiovascular History: factor 5 Gastrointestinal History: Reports: GERD Genitourinary History: Reports: Other (See Below) [employer]ERGROUND [employer] History: Reports: Other OB/BYN History: unilateral salpingo-oophorectomy Hematologic History: Reports: Other (See Below) (Factor V Leiden mutation - heterozygote) Other Hematologic History: factor 5 - Past Surgical History HEENT Surgical History: Reports: Myringotomy w Tube(s), Oral Surgery Female Surgical History: Reports: Salpingo-Oophorectomy - SUBSTANCE USE Smoking Status *Q: Never Smoker Second Hand Smoke Exposure: No Recreational Drug Use History: No - HOME MEDS Home Medications: Home Meds Loratadine [Claritin] 10 mg PO DAILY 03/31/15 [History] Pnv No.95/Ferrous Fum/Folic AC [ Tablet] 1 tab PO DAILY 05/02/16 [History] Docusate Sodium [Colace] 100 mg PO BID PRN cap 03/04/17 [Rx] Ibuprofen [IJD: Ibuprofen] 600 mg PO Q6H PRN tablet 03/04/17 [Rx] Enoxaparin [Lovenox] 40 mg SUBCUT DAILY 12/20/19 [History] - CURRENT (IN HOUSE) MEDS Current Meds: Current Medications Diphenhydramine HCl (Benadryl) 25 mg IVPUSH Q6H PRN PRN Reason: pruritis Ephedrine Sulfate (Ephedrine Sulfate) 5 mg IVPUSH ASDIRECTED PRN PRN Reason: Hypotension Fentanyl (Sublimaze) 100 mcg EPIDUR Q3H PRN PRN Reason: Pain Last Admin: 12/20/19 17:18 Dose: 100 mcg Documented by: Fentanyl/Bupivacaine HCl (Fentanyl/Bupivacaine/Ns 2 Mcg-0.125% 100 Ml) 100 ml EPIDUR ASDIRECTED PRN PRN Reason: Pain Last Admin: 12/20/19 17:18 Dose: 100 ml Documented by: Lactated Ringer's (Ringers, Lactated) 1,000 mls @ 100 mls/hr IV ASDIRECTED RAMONE Last Admin: 12/20/19 17:25 Dose: 999 mls/hr Documented by: Oxytocin/Lactated Ringer's (Pitocin In Lr 10 Units/1,000 Ml) 10 unit in 1,000 mls @ 500 mls/hr IV .CONTINUOUS RAMONE Oxytocin/Lactated Ringer's (Pitocin In Lr 10 Units/1,000 Ml) 10 unit in 1,000 mls @ 12 mls/hr IV TITRATE RAMONE; Protocol Last Titration: 12/20/19 16:45 Dose: 8 munits/min, 48 mls/hr Documented by: Nalbuphine HCl (Nubain) 10 mg IVPUSH Q2H PRN PRN Reason: Pain Ondansetron HCl (Zofran) 4 mg IVPUSH Q4H PRN PRN Reason: Nausea/Vomiting Sodium Chloride (Saline Flush) 10 ml FLUSH ASDIRECTED PRN PRN Reason: Keep Vein Open
[2019-12-20] MEDS ORDERED: Measles, Mumps & Rubella Vaccine 0.5 ML SDV SUBCUT ONE (19:02)
[2019-12-20] MEDS ORDERED: Methylergonovine 0.2 MG/1 ML Amp ONE (23:09)
[2019-12-20] MEDS ORDERED: Misoprostol 200 MCG Tab PO STA (23:15)
[2019-12-20] MEDS ORDERED: Methylergonovine 0.2 MG/1 ML Amp IM STA (23:15)
--- NOTE | 2019-12-20 23:16 | PCM.DEL ---
L & D Note - General Info Date of Service: 12/20/19 - Delivery Note Labor: Induced by ARM, Induced by Oxytocin Delivery Outcome: Livebirth Infant Delivery Method: Spontaneous Vaginal Delivery-Single Infant Delivery Mode: Spontaneous Presentation: Left Occiput Anterior (ZIGGY) Nuchal Cord: None Anesthesia Type: Epidural Amniotic Fluid Description: Clear Episiotomy Type: None Laceration: 2nd Degree, Perineal Suture type: Vicryl Suture size: 2-0 Placenta: Intact, Spontaneous Cord: 3 Vessels Estimated Blood Loss: 400 Resuscitation Needed: Yes [place]: Bulb Syringe, Stimulated, Warmed, [place] Used, Warmer Used Delivery Comments (Free Text/Narrative):: Patient found to be complete and began pushing. With maternal pushing effort head delivered from ZIGGY presentation. No nuchal cord present. With gentle downward traction the shoulders and body delivered. placed on maternal abdomen. Cord clamped and cut. Cord blood obtained. Placenta allowed time to separate and expelled intact. Inspection of the perineum showed a 2nd degree laceration which was repaired with a 2-0 vicryl in the typical fashion. Patient did have some on and off bleeding which responded somewhat to fundal massage. Was eventually given 600 mcg of buccal cytotec with good response in addition to 0.2 mg IM methergine - General Info Date of Service: 12/20/19 - Patient Data Vitals - Most Recent: Last Vital Signs Temp 36.6 C 12/20/19 13:48 Pulse Resp 18 12/20/19 13:48 BP 130/81 12/20/19 13:48 Pulse Ox 98 12/20/19 13:48 Weight - Most Recent: 86.636 kg Lab Results Last 24 Hours: - Problem List & Annotations (1) 39 weeks gestation of SNOMED Code(s): 82201488 Code(s): Z3A.39 - 39 WEEKS GESTATION OF Status: Acute Current Visit: Yes (2) Heterozygous factor V Leiden affecting in third trimester, antepartum SNOMED Code(s): 725921927 Code(s): O99.113 - OTH DIS OF BLD/BLD-FORM ORG/IMMUN MECHNSM COMP PREG, 3RD TRI; D68.51 - ACTIVATED PROTEIN C RESISTANCE Status: Acute Current Visit: No (3) Vaginal delivery SNOMED Code(s): 860167110 Code(s): O80 - ENCOUNTER FOR FULL-TERM UNCOMPLICATED DELIVERY Status: Acute Current Visit: No - Problem List Review Problem List Initiated/Reviewed/Updated: Yes - My Orders Last 24 Hours: My Active Orders 12/20/19 Lunch Regular Diet [DIET] 12/20/19 13:48 Patient Status [ADT] Routine Activity as Tolerated [RC] PFP Communication Order [RC] ASDIRECTED Notify Provider [RC] PFP Notify Provider [RC] PRN Peripheral IV Care [RC] . DIRECTED Vital Signs [RC] PER UNIT ROUTINE Nalbuphine [Nubain] 10 mg IVPUSH Q2H PRN Ondansetron [Zofran] 4 mg IVPUSH Q4H PRN Sodium Chloride 0.9% [Saline Flush] 10 ml FLUSH ASDIRECTED PRN Electronic Heart Tones Ext w TOCO [WOMSER] Routine Electronic Heart Tones Internal [WOMSER] Per Unit Routine Peripheral IV Insertion Adult [OM.PC] Routine Resuscitation Status Routine 12/20/19 14:00 Lactated Ringers [Ringers, Lactated] 1,000 ml IV ASDIRECTED Oxytocin/Lactated Ringers [Pitocin in LR 10 Units/1,000 ML] 10 unit in 1,000 ml IV .CONTINUOUS 12/20/19 14:45 Oxytocin/Lactated Ringers [Pitocin in LR 10 Units/1,000 ML] 10 unit in 1,000 ml IV TITRATE 12/20/19 19:03 Vaccines to be Administered [RC] PER UNIT ROUTINE 12/20/19 23:15 Methylergonovine [Methergine] 0.2 mg IM NOW STA miSOPROStoL [Cytotec] 600 mcg PO NOW STA - Assessment Assessment:: PPD#0 - Plan Plan:: * Routine cares * breast feeding * Lovenox to be restarted 12 hours after delivery * Discharge home in 1-2 days
[2019-12-20] MEDS ORDERED: Docusate Sodium 100 MG Cap PO PRN (23:50)
[2019-12-20] MEDS ORDERED: Witch Hazel Medicated Pads 40/Jar TOP PRN (23:50)
[2019-12-20] MEDS ORDERED: Benzocaine/Menthol 20%-0.5% Spray 56 GM Canister TOP PRN (23:50)
[2019-12-20] MEDS ORDERED: Acetaminophen 325 MG Tab PO PRN (23:50)
[2019-12-21] MEDS: Ibuprofen 600 MG Tab PO PRN ×3 (08:02→21:25)
--- NOTE | 2019-12-21 08:56 | PCM.PNPP ---
- General Info Date of Service: 12/21/19 Functional Status: Reports: Pain Controlled, Tolerating Diet, Ambulating, Urinating - Review of Systems General: Reports: No Symptoms Pulmonary: Reports: No Symptoms Cardiovascular: Reports: No Symptoms Gastrointestinal: Reports: No Symptoms Genitourinary: Reports: No Symptoms Musculoskeletal: Reports: No Symptoms - Patient Data Vital Signs - Most Recent: Last Vital Signs Temp 36.5 C 12/21/19 03:51 Pulse 103 H 12/21/19 03:51 Resp 16 12/21/19 03:51 BP 137/91 H 12/21/19 03:51 Pulse Ox 98 12/21/19 03:51 Weight - Most Recent: 86.636 kg I&O - Last 24 Hours: Intake & Output 12/20/19 12/21/19 12/21/19 22:59 06:59 14:59 Intake Total 180 2700 Output Total 500 Balance -320 2700 Lab Results - Last 24 Hours: Laboratory Results - last 24 hr 12/20/19 12/20/19 12/20/19 Range/Units 13:20 13:59 13:59 WBC 8.30 (3.98-10.04) K/mm3 RBC 3.80 L (3.98-5.22) M/mm3 Hgb 10.8 L (11.2-15.7) gm/dl Hct 34.1 (34.1-44.9) % MCV 89.7 (79.4-94.8) fl MCH 28.4 (25.6-32.2) pg MCHC 31.7 L (32.2-35.5) g/dl RDW Std Deviation 52.7 H (36.4-46.3) fL Plt Count 124 L (182-369) K/mm3 MPV 11.5 (9.4-12.3) fl RPR Non-reactive (NONREACTIVE) COVID-19 (JAYA) Negative (NEGATIVE) Blood Type Gel Antibody Screen 12/20/19 Range/Units 13:59 WBC (3.98-10.04) K/mm3 RBC (3.98-5.22) M/mm3 Hgb (11.2-15.7) gm/dl Hct (34.1-44.9) % MCV (79.4-94.8) fl MCH (25.6-32.2) pg MCHC (32.2-35.5) g/dl RDW Std Deviation (36.4-46.3) fL Plt Count (182-369) K/mm3 MPV (9.4-12.3) fl RPR (NONREACTIVE) COVID-19 (JAYA) (NEGATIVE) Blood Type A POSITIVE Gel Antibody Screen Negative Med Orders - Current: Current Medications Acetaminophen (Tylenol) 650 mg PO Q4H PRN PRN Reason: mild pain or fever Benzocaine/Menthol (Dermoplast Pain Relief [place]) 0 gm TOP ASDIRECTED PRN PRN Reason: Perineal Comfort Measure Docusate Sodium (Colace) 100 mg PO BID PRN PRN Reason: Constipation Enoxaparin Sodium (Lovenox) 40 mg SUBCUT DAILY RAMONE Ibuprofen (Motrin) 600 mg PO Q6H PRN PRN Reason: Mild pain or fever Last Admin: 12/21/19 08:02 Dose: 600 mg Documented by: Debora Cheng) 1 pad TOP ASDIRECTED PRN PRN Reason: Perineal Comfort Measure Discontinued Medications Diphenhydramine HCl (Benadryl) 25 mg IVPUSH Q6H PRN PRN Reason: pruritis Ephedrine Sulfate (Ephedrine Sulfate) 5 mg IVPUSH ASDIRECTED PRN PRN Reason: Hypotension Fentanyl (Sublimaze) 100 mcg EPIDUR Q3H PRN PRN Reason: Pain Last Admin: 12/20/19 17:18 Dose: 100 mcg Documented by: Fentanyl/Bupivacaine HCl (Fentanyl/Bupivacaine/Ns 2 Mcg-0.125% 100 Ml) 100 ml EPIDUR ASDIRECTED PRN PRN Reason: Pain Last Admin: 12/20/19 17:18 Dose: 100 ml Documented by: Lactated Ringer's (Ringers, Lactated) 1,000 mls @ 100 mls/hr IV ASDIRECTED RAMONE Last Admin: 12/20/19 17:25 Dose: 999 mls/hr Documented by: Oxytocin/Lactated Ringer's (Pitocin In Lr 10 Units/1,000 Ml) 10 unit in 1,000 mls @ 500 mls/hr IV .CONTINUOUS RAMONE Oxytocin/Lactated Ringer's (Pitocin In Lr 10 Units/1,000 Ml) 10 unit in 1,000 mls @ 12 mls/hr IV TITRATE RAMONE; Protocol Last Titration: 12/20/19 19:28 Dose: 12 munits/min, 72 mls/hr Documented by: Measles/Mumps/Rubella Vaccine Live (M-M-R Ii Vaccine) 0.5 ml SUBCUT .ONCE ONE Stop: 12/20/19 19:03 Last Admin: 12/21/19 08:14 Dose: 0.5 ml Documented by: Methylergonovine Maleate (Methergine) Confirm Administered Dose 0.2 mg .ROUTE .STK-MED ONE Stop: 12/20/19 23:10 Last Admin: 12/21/19 03:56 Dose: Not Given Documented by: Methylergonovine Maleate (Methergine) 0.2 mg IM NOW STA Stop: 12/20/19 23:16 Last Admin: 12/20/19 23:14 Dose: 0.2 mg Documented by: Misoprostol (Cytotec) 600 mcg PO NOW STA Stop: 12/20/19 23:16 Last Admin: 12/20/19 23:04 Dose: 600 mcg Documented by: Nalbuphine HCl (Nubain) 10 mg IVPUSH Q2H PRN PRN Reason: Pain Ondansetron HCl (Zofran) 4 mg IVPUSH Q4H PRN PRN Reason: Nausea/Vomiting Last Admin: 12/20/19 19:17 Dose: 4 mg Documented by: Sodium Chloride (Saline Flush) 10 ml FLUSH ASDIRECTED PRN PRN Reason: Keep Vein Open - Interaction Disposition, : to Nursery Infant Feeding: Bottle Fed Infant Support Person: - Recovery Exam Fundal Tone: Firm Fundal Level: 2 Fingerbreadths Below Umbilicus Fundal Placement: Midline Lochia Amount: Small Lochia Color: Rubra/Red Perineum Description: Other (see below) Other Perinuem Description: 2nd degree with repair Episiotomy/Laceration: None Bladder Status: Voiding Urinary Elimination: Voided - Exam General: Alert, Oriented, Cooperative GI/Abdominal Exam: Soft, Non-Tender Extremities: Normal Inspection - Problem List & Annotations (1) 39 weeks gestation of SNOMED Code(s): 75399149 Code(s): Z3A.39 - 39 WEEKS GESTATION OF Status: Acute Current Visit: Yes (2) Heterozygous factor V Leiden affecting in third trimester, antepartum SNOMED Code(s): 880166554 Code(s): O99.113 - OTH DIS OF BLD/BLD-FORM ORG/IMMUN MECHNSM COMP PREG, 3RD TRI; D68.51 - ACTIVATED PROTEIN C RESISTANCE Status: Acute Current Visit: No (3) Vaginal delivery SNOMED Code(s): 589215229 Code(s): O80 - ENCOUNTER FOR FULL-TERM UNCOMPLICATED DELIVERY Status: Acute Current Visit: No - Problem List Review Problem List Initiated/Reviewed/Updated: Yes - My Orders Last 24 Hours: My Active Orders 12/20/19 13:48 Resuscitation Status Routine 12/20/19 23:50 Acetaminophen [Tylenol] 650 mg PO Q4H PRN Benzocaine/Menthol [Dermoplast Pain Relief [place]] See Dose Instructions TOP ASDIRECTED PRN Docusate Sodium [Colace] 100 mg PO BID PRN Ibuprofen [Motrin] 600 mg PO Q6H PRN witch Madan [Tucks] 1 pad TOP ASDIRECTED PRN Heat Therapy [OM.PC] PRN 12/20/19 23:50 Activity as Tolerated [RC] PER UNIT ROUTINE Vital Signs [RC] ASDIRECTED Assess Lochia [WOMSER] Per Unit Routine Assess Uterine Involution [WOMSER] Per Unit Routine Breast Pump [WOMSER] Per Unit Routine Ice Therapy [OM.PC] Per Unit Routine Perineal Care [OM.PC] Per Unit Routine Sitz Bath [OM.PC] Per Unit Routine 12/21/19 12:00 Enoxaparin [Lovenox] 40 mg SUBCUT DAILY 12/21/19 23:50 Heat Therapy [OM.PC] PRN - Assessment Assessment:: PPD#1 - Plan Plan:: * Routine cares * Bottle feeding * Lovenox to be restarted today, 12 hours after delivery. Will continue for 6 weeks * Discharge tomorrow
--- NOTE | 2019-12-21 10:34 | PCM48HPAN ---
Post Anesthesia Note - EVALUATION WITHIN 48HRS OF ANESTHETIC Vital Signs in Normal Range: Yes Patient Participated in Evaluation: Yes Respiratory Function Stable: Yes Airway Patent: Yes Cardiovascular Function Stable: Yes Hydration Status Stable: Yes Pain Control Satisfactory: Yes Nausea and Vomiting Control Satisfactory: Yes Mental Status Recovered: Yes Vital Signs: Last Vital Signs Temp 97.7 F 12/21/19 03:51 Pulse 103 H 12/21/19 03:51 Resp 16 12/21/19 03:51 BP 137/91 H 12/21/19 03:51 Pulse Ox 98 12/21/19 03:51 - COMMENTS/OBSERVATIONS Free Text/Narrative:: Patient on her day 1. Mentions minor back soreness at this time. Explanation given about importance of avoiding back straining. Denies any headache or lightheadedness at this time. Comfortable now. Ambulating, no difficulty urinating.
[2019-12-21] MEDS: Enoxaparin 40 MG/0.4 ML Syringe SUBCUT SCH (12:15)
--- NOTE | 2019-12-22 06:46 | PCM.DCSUM1 ---
Discharge Summary - Discharge Data Discharge Date: 12/22/19 Discharge Disposition: Home, Self-Care 01 Condition: Good - Referral to Home Health Primary Care Physician: Ashli Canas MD - Discharge Diagnosis/Problem(s) (1) 39 weeks gestation of SNOMED Code(s): 12203804 ICD Code: Z3A.39 - 39 WEEKS GESTATION OF Status: Acute Current Visit: Yes (2) Heterozygous factor V Leiden affecting in third trimester, antepartum SNOMED Code(s): 576149825 ICD Code: O99.113 - OTH DIS OF BLD/BLD-FORM ORG/IMMUN MECHNSM COMP PREG, 3RD TRI; D68.51 - ACTIVATED PROTEIN C RESISTANCE Status: Acute Current Visit: No (3) Vaginal delivery SNOMED Code(s): 908063937 ICD Code: O80 - ENCOUNTER FOR FULL-TERM UNCOMPLICATED DELIVERY Status: Acute Current Visit: No - Patient Summary/Data Complications: None Consults: None Recommended Follow-up Testing/Procedures: Follow up in 3 weeks for check Hospital Course: 34 y/o at 39 0/7 wks who presented for IOL for hx of IUFD. IOL done with Pitocin and AROM. She progressed well to complete dilation and underwent . Had slight bleeding which was managed with Cytotec and Methergine. she did well and was discharged home on PPD#2 - Patient Instructions Diet: Regular Diet as Tolerated Activity: As Tolerated Activity, Other: Pelvic rest for 6 weeks Driving: May Drive Today Showering/Bathing: May Shower Showering/Bathing, Other: May bathe Notify Provider of: Fever, Increased Pain, Swelling and Redness, Drainage, Nausea and/or Vomiting - Discharge Plan *PRESCRIPTION DRUG MONITORING PROGRAM REVIEWED*: No *COPY OF PRESCRIPTION DRUG MONITORING REPORT IN PATIENT MARLENE: No Home Medications: Home Meds Loratadine [Claritin] 10 mg PO DAILY 03/31/15 [History] Pnv No.95/Ferrous Fum/Folic AC [ Tablet] 1 tab PO DAILY 05/02/16 [History] Docusate Sodium [Colace] 100 mg PO BID PRN cap 03/04/17 [Rx] Ibuprofen [IJD: Ibuprofen] 600 mg PO Q6H PRN tablet 03/04/17 [Rx] Enoxaparin [Lovenox] 40 mg SUBCUT DAILY 12/20/19 [History] Referrals: Hayde Villegas MD [Physician] - (3 weeks for check, can be telehealth appt if desired ) - Discharge Summary/Plan Comment DC Time >30 min.: No - Patient Data Vitals - Most Recent: Last Vital Signs Temp 36.4 C 12/22/19 02:41 Pulse 70 12/22/19 02:41 Resp 14 12/22/19 02:41 BP 109/88 12/22/19 02:41 Pulse Ox 100 12/22/19 02:41 Weight - Most Recent: 86.636 kg I&O - Last 24 hours: Intake & Output 12/21/19 12/21/19 12/22/19 14:59 22:59 06:59 Intake Total 120 Balance 120 Med Orders - Current: Current Medications Acetaminophen (Tylenol) 650 mg PO Q4H PRN PRN Reason: mild pain or fever Benzocaine/Menthol (Dermoplast Pain Relief [place]) 0 gm TOP ASDIRECTED PRN PRN Reason: Perineal Comfort Measure Docusate Sodium (Colace) 100 mg PO BID PRN PRN Reason: Constipation Enoxaparin Sodium (Lovenox) 40 mg SUBCUT DAILY RAMONE Last Admin: 12/21/19 12:15 Dose: 40 mg Documented by: Ibuprofen (Motrin) 600 mg PO Q6H PRN PRN Reason: Mild pain or fever Last Admin: 12/21/19 21:25 Dose: 600 mg Documented by: Debora Cheng) 1 pad TOP ASDIRECTED PRN PRN Reason: Perineal Comfort Measure Discontinued Medications Bupivacaine HCl (Sensorcaine-Mpf 0.25%) 10 ml .ROUTE .STK-MED ONE Stop: 12/20/19 00:01 Diphenhydramine HCl (Benadryl) 25 mg IVPUSH Q6H PRN PRN Reason: pruritis Ephedrine Sulfate (Ephedrine Sulfate) 5 mg IVPUSH ASDIRECTED PRN PRN Reason: Hypotension Fentanyl (Sublimaze) 100 mcg EPIDUR Q3H PRN PRN Reason: Pain Last Admin: 12/20/19 17:18 Dose: 100 mcg Documented by: Fentanyl/Bupivacaine HCl (Fentanyl/Bupivacaine/Ns 2 Mcg-0.125% 100 Ml) 100 ml EPIDUR ASDIRECTED PRN PRN Reason: Pain Last Admin: 12/20/19 17:18 Dose: 100 ml Documented by: Lactated Ringer's (Ringers, Lactated) 1,000 mls @ 100 mls/hr IV ASDIRECTED RAMONE Last Admin: 12/20/19 17:25 Dose: 999 mls/hr Documented by: Oxytocin/Lactated Ringer's (Pitocin In Lr 10 Units/1,000 Ml) 10 unit in 1,000 mls @ 500 mls/hr IV .CONTINUOUS RAMONE Oxytocin/Lactated Ringer's (Pitocin In Lr 10 Units/1,000 Ml) 10 unit in 1,000 mls @ 12 mls/hr IV TITRATE RAMONE; Protocol Last Titration: 12/20/19 19:28 Dose: 12 munits/min, 72 mls/hr Documented by: Measles/Mumps/Rubella Vaccine Live (M-M-R Ii Vaccine) 0.5 ml SUBCUT .ONCE ONE Stop: 12/20/19 19:03 Last Admin: 12/21/19 08:14 Dose: 0.5 ml Documented by: Methylergonovine Maleate (Methergine) Confirm Administered Dose 0.2 mg .ROUTE .STK-MED ONE Stop: 12/20/19 23:10 Last Admin: 12/21/19 03:56 Dose: Not Given Documented by: Methylergonovine Maleate (Methergine) 0.2 mg IM NOW STA Stop: 12/20/19 23:16 Last Admin: 12/20/19 23:14 Dose: 0.2 mg Documented by: Misoprostol (Cytotec) 600 mcg PO NOW STA Stop: 12/20/19 23:16 Last Admin: 12/20/19 23:04 Dose: 600 mcg Documented by: Nalbuphine HCl (Nubain) 10 mg IVPUSH Q2H PRN PRN Reason: Pain Ondansetron HCl (Zofran) 4 mg IVPUSH Q4H PRN PRN Reason: Nausea/Vomiting Last Admin: 12/20/19 19:17 Dose: 4 mg Documented by: Sodium Chloride (Saline Flush) 10 ml FLUSH ASDIRECTED PRN PRN Reason: Keep Vein Open
--- NOTE | 2019-12-22 06:46 | PCM.PNPP ---
- General Info Date of Service: 12/22/19 Functional Status: Reports: Pain Controlled, Tolerating Diet, Ambulating, Urinating - Review of Systems General: Reports: No Symptoms Pulmonary: Reports: No Symptoms Cardiovascular: Reports: No Symptoms Gastrointestinal: Reports: No Symptoms Genitourinary: Reports: No Symptoms Musculoskeletal: Reports: No Symptoms Neurological: Reports: No Symptoms - General Info Date of Service: 12/22/19 - Patient Data Vital Signs - Most Recent: Last Vital Signs Temp 36.4 C 12/22/19 02:41 Pulse 70 12/22/19 02:41 Resp 14 12/22/19 02:41 BP 109/88 12/22/19 02:41 Pulse Ox 100 12/22/19 02:41 Weight - Most Recent: 86.636 kg I&O - Last 24 Hours: Intake & Output 12/21/19 12/21/19 12/22/19 14:59 22:59 06:59 Intake Total 120 Balance 120 Med Orders - Current: Current Medications Acetaminophen (Tylenol) 650 mg PO Q4H PRN PRN Reason: mild pain or fever Benzocaine/Menthol (Dermoplast Pain Relief [place]) 0 gm TOP ASDIRECTED PRN PRN Reason: Perineal Comfort Measure Docusate Sodium (Colace) 100 mg PO BID PRN PRN Reason: Constipation Enoxaparin Sodium (Lovenox) 40 mg SUBCUT DAILY RAMONE Last Admin: 12/21/19 12:15 Dose: 40 mg Documented by: Ibuprofen (Motrin) 600 mg PO Q6H PRN PRN Reason: Mild pain or fever Last Admin: 12/21/19 21:25 Dose: 600 mg Documented by: [facility]a [facility]) 1 pad TOP ASDIRECTED PRN PRN Reason: Perineal Comfort Measure Discontinued Medications Bupivacaine HCl (Sensorcaine-Mpf 0.25%) 10 ml .ROUTE .STK-MED ONE Stop: 12/20/19 00:01 Diphenhydramine HCl (Benadryl) 25 mg IVPUSH Q6H PRN PRN Reason: pruritis Ephedrine Sulfate (Ephedrine Sulfate) 5 mg IVPUSH ASDIRECTED PRN PRN Reason: Hypotension Fentanyl (Sublimaze) 100 mcg EPIDUR Q3H PRN PRN Reason: Pain Last Admin: 12/20/19 17:18 Dose: 100 mcg Documented by: Fentanyl/Bupivacaine HCl (Fentanyl/Bupivacaine/Ns 2 Mcg-0.125% 100 Ml) 100 ml EPIDUR ASDIRECTED PRN PRN Reason: Pain Last Admin: 12/20/19 17:18 Dose: 100 ml Documented by: Lactated Ringer's (Ringers, Lactated) 1,000 mls @ 100 mls/hr IV ASDIRECTED RAMONE Last Admin: 12/20/19 17:25 Dose: 999 mls/hr Documented by: Oxytocin/Lactated Ringer's (Pitocin In Lr 10 Units/1,000 Ml) 10 unit in 1,000 mls @ 500 mls/hr IV .CONTINUOUS RAMONE Oxytocin/Lactated Ringer's (Pitocin In Lr 10 Units/1,000 Ml) 10 unit in 1,000 mls @ 12 mls/hr IV TITRATE RAMONE; Protocol Last Titration: 12/20/19 19:28 Dose: 12 munits/min, 72 mls/hr Documented by: Measles/Mumps/Rubella Vaccine Live (M-M-R Ii Vaccine) 0.5 ml SUBCUT .ONCE ONE Stop: 12/20/19 19:03 Last Admin: 12/21/19 08:14 Dose: 0.5 ml Documented by: Methylergonovine Maleate (Methergine) Confirm Administered Dose 0.2 mg .ROUTE .STK-MED ONE Stop: 12/20/19 23:10 Last Admin: 12/21/19 03:56 Dose: Not Given Documented by: Methylergonovine Maleate (Methergine) 0.2 mg IM NOW STA Stop: 12/20/19 23:16 Last Admin: 12/20/19 23:14 Dose: 0.2 mg Documented by: Misoprostol (Cytotec) 600 mcg PO NOW STA Stop: 12/20/19 23:16 Last Admin: 12/20/19 23:04 Dose: 600 mcg Documented by: Nalbuphine HCl (Nubain) 10 mg IVPUSH Q2H PRN PRN Reason: Pain Ondansetron HCl (Zofran) 4 mg IVPUSH Q4H PRN PRN Reason: Nausea/Vomiting Last Admin: 12/20/19 19:17 Dose: 4 mg Documented by: Sodium Chloride (Saline Flush) 10 ml FLUSH ASDIRECTED PRN PRN Reason: Keep Vein Open - Infant Interaction Disposition, : at Bedside Infant Interaction: Holding Infant Feeding: Bottle Fed Support Person: - Recovery Exam Fundal Tone: Firm Fundal Level: 2 Fingerbreadths Below Umbilicus Fundal Placement: Midline Lochia Amount: Scant, Small Lochia Color: Rubra/Red Perineum Description: Other (see below) Other Perinuem Description: 2nd degree with repair Episiotomy/Laceration: None Bladder Status: Voiding Urinary Elimination: Voided - Exam General: Alert, Oriented, Cooperative GI/Abdominal Exam: Soft, Non-Tender Extremities: Normal Inspection Skin: Warm, Dry, Intact - Problem List & Annotations (1) 39 weeks gestation of SNOMED Code(s): 24684827 Code(s): Z3A.39 - 39 WEEKS GESTATION OF Status: Acute Current V isit: Yes (2) Heterozygous factor V Leiden affecting in third trimester, antepartum SNOMED Code(s): 639992265 Code(s): O99.113 - OTH DIS OF BLD/BLD-FORM ORG/IMMUN MECHNSM COMP PREG, 3RD TRI; D68.51 - ACTIVATED PROTEIN C RESISTANCE Status: Acute Current Visit: No (3) Vaginal delivery SNOMED Code(s): 593241430 Code(s): O80 - ENCOUNTER FOR FULL-TERM UNCOMPLICATED DELIVERY Status: Acute Current Visit: No - Problem List Review Problem List Initiated/Reviewed/Updated: Yes - My Orders Last 24 Hours: My Active Orders 12/21/19 12:00 Enoxaparin [Lovenox] 40 mg SUBCUT DAILY 12/21/19 23:50 Heat Therapy [OM.PC] PRN 12/22/19 06:45 Ready for Discharge [RC] PER UNIT ROUTINE - Assessment Assessment:: PPD#2 - Plan Plan:: * Routine cares * Bottle feeding * Lovenox for 6 weeks * Discharge today
[2019-12-22] MEDS: Enoxaparin 40 MG/0.4 ML Syringe SUBCUT SCH (09:23)
[2019-12-22 10:06] VITALS: BP 116/86; PULSE 87
== END 2019-12-22 10:30 | disposition home or self-care (01) | DRG 560 ==
LOC: JD.OB 13:24 → OBSVTOIN 22:47 → JD.OB 22:47
PROVIDERS: ADMIT Obstetrics & Gynecology; ATTEND Obstetrics & Gynecology
PROC: 10E0XZZ Delivery of Products of Conception, External Approach (ICD-10-PCS; principal; 2019-12-20)
PROC: 10907ZC Drainage of Amniotic Fluid, Therapeutic from Products of Conception, Via Natural or Artificial Opening (ICD-10-PCS; 2019-12-20)
PROC: 3E033VJ Introduction of Other Hormone into Peripheral Vein, Percutaneous Approach (ICD-10-PCS; 2019-12-20)
PROC: 0KQM0ZZ Repair Perineum Muscle, Open Approach (ICD-10-PCS; 2019-12-20)
PROC: 3E0R3BZ Introduction of Anesthetic Agent into Spinal Canal, Percutaneous Approach (ICD-10-PCS; 2019-12-20)
PROC: 00HU33Z Insertion of Infusion Device into Spinal Canal, Percutaneous Approach (ICD-10-PCS; 2019-12-20)
PROC: 3E0234Z Introduction of Serum, Toxoid and Vaccine into Muscle, Percutaneous Approach (ICD-10-PCS; 2019-12-21)
DX: O99.12 Other diseases of the blood and blood-forming organs and certain disorders involving the immune mechanism complicating childbirth (principal); D68.51 Activated protein C resistance; O70.1 Second degree perineal laceration during delivery; Z3A.39 39 weeks gestation of pregnancy; Z37.0 Single live birth; Z88.0 Allergy status to penicillin; Z11.59 Encounter for screening for other viral diseases; Z23 Encounter for immunization
CPT/HCPCS: 01967; 36415; 51701; 51702; 59025; 59409; 85027; 86592; 86850; 86900; 86901; 90471; 90707; A9270-GY; J1650; J2210; J2405; J2590; J3010; J3490; J7120; U0002